=== PATIENT | male | born 1965 | race Caucasian/White ===

== ENCOUNTER 2017-08-17 06:20 | Day surgery (SDC) | payer MEDICAID ==
[~2017-08-17] VITALS: Ht 172.7 cm; Wt 65.2 kg
[~2017-08-17 06:20] MED LIST: SODIUM CHLORIDE 0.9% 1,000 ML IV ONE
[2017-08-17] MEDS ORDERED: SODIUM CHLORIDE 0.9% 1,000 ML IV ONE (07:00)
[2017-08-17] MEDS ORDERED: FOLI1TAB15 PO (07:40)
[2017-08-17] MEDS ORDERED: ENZY1CAP PO (07:40)
[2017-08-17] MEDS ORDERED: METO25XL PO (07:40)
[2017-08-17] MEDS ORDERED: CALC-795 PO (07:40)
[2017-08-17] MEDS ORDERED: MULT-248 PO (07:40)
[2017-08-17] MEDS ORDERED: CA C1TAB98 PO (07:40)
[2017-08-17] MEDS ORDERED: ZINC50TA64 PO (07:40)
[2017-08-17] MEDS ORDERED: NIAC500T7 PO (07:40)
[2017-08-17] MEDS ORDERED: CHOL500062 PO (07:40)
[2017-08-17 07:58] LABS: BASOPHILS % (AUTO) 0.6 % (0.0-2.0); EOSINOPHILS % (AUTO) 3.9 % (1.0-6.0); HEMOGLOBIN 15.7 g/dL (13.5-17.5); MEAN CORPUSCULAR HEMOGLOBIN 32.9 pg (26.0-34.0); MEAN CORPUSCULAR HGB CONC 34.8 G/dL (31.0-37.0); MEAN CORPUSCULAR VOLUME 94 fL (80-100); MONOCYTES # (AUTO) 0.5 K/uL (0.1-1.0); MONOCYTES % (AUTO) 6.8 % (2.0-9.0); NEUTROPHILS % (AUTO) 58.7 % (40.0-70.0); PLATELET COUNT (AUTO) 260 K/uL (150-450); RED BLOOD CELL COUNT(AUTO) 4.77 MIL/uL (4.50-5.90); RED CELL DISTRIBUTION WIDTH 13.5 % (11.5-14.5); WHITE BLOOD COUNT (AUTO) 6.8 K/uL (4.5-11.0)
[2017-08-17] MEDS ORDERED: 0.9% SODIUM CHLORIDE 10 ML SYRINGE IVP ONE (08:02)
[2017-08-17] MEDS ORDERED: MIDAZOLAM HCL 2 MG/2 ML VIAL ONE (08:03)
[2017-08-17] MEDS ORDERED: FentaNYL CITRATE-PF 100 MCG/2 ML VIAL ONE (08:03)
[2017-08-17 08:06] LABS: INR 1.1 (0.9-1.1); PROTHROMBIN TIME 11.4 SEC (9.4-11.6)
[2017-08-17] MEDS ORDERED: BENZOCAINE 20% 50 MCG/SPRAY 57 GM ONE (08:06)
[2017-08-17 08:11] VITALS: BP_SYST 110; BP_SYST 97; BP_DIAS 62; BP_DIAS 76
[2017-08-17 08:12] LABS: ANION GAP 9 mmol/L (8-16); CALCIUM, TOTAL 8.8 mg/dL (8.8-10.5); CARBON DIOXIDE 25 mmol/L (22-29); CHLORIDE 104 mmol/L (98-107); CREATININE 1.01 mg/dL (0.60-1.30); GLOMERULAR FILTR. RATE CALC > 60 mL/min (>60); SODIUM SERUM 138 mmol/L (136-145); UREA NITROGEN, BLOOD 20 mg/dL (7-18)
[2017-08-17] MEDS ORDERED: FentaNYL CITRATE-PF 100 MCG/2 ML VIAL IVP ONE ×2 (08:15→08:17)
[2017-08-17] MEDS ORDERED: MIDAZOLAM HCL 2 MG/2 ML VIAL IVP ONE ×2 (08:15→08:17)
[2017-08-17] MEDS ORDERED: BENZOCAINE 20% 11.9 GM GEL TP ONE (08:16)
[2017-08-17] MEDS ORDERED: BENZOCAINE 20% 50 MCG/SPRAY 57 GM TP ONE (08:16)
== END 2017-08-17 10:50 | disposition home or self-care (01) ==
LOC: CATHLAB 06:20
PROVIDERS: ATTEND Internal Medicine Cardiovascular Disease
DX: Q21.1 Atrial septal defect (principal); I34.1 Nonrheumatic mitral (valve) prolapse; E78.00 Pure hypercholesterolemia, unspecified; F12.90 Cannabis use, unspecified, uncomplicated; Z72.89 Other problems related to lifestyle; Z79.01 Long term (current) use of anticoagulants; Z79.899 Other long term (current) drug therapy; Z98.890 Other specified postprocedural states; Z98.41 Cataract extraction status, right eye
CPT/HCPCS: 36415; 80048; 85025; 85610; 85730; 93312; 99152; J2250; J3010; J7030

== ENCOUNTER 2018-05-13 09:02 | Emergency (ER) | payer MEDICAID ==
[~2018-05-13] VITALS: Ht 170.2 cm; Wt 62.7 kg
[~2018-05-13 09:02] MED LIST changes: +CA C1TAB98 PO; +CALC-795 PO; +CHOL500062 PO; +ENZY1CAP PO; +FOLI1TAB15 PO; +METO25XL PO; +MULT-248 PO; +NIAC500T7 PO; -SODIUM CHLORIDE 0.9% 1,000 ML IV ONE; +ZINC50TA64 PO
[2018-05-13 09:13] LABS: GLUCOSE,POINT OF CARE 91 MG/DL (70-110)
[2018-05-13] MEDS ORDERED: ASPIRIN 81 MG CHEWABLE TABLET PO ONE (09:45)
[2018-05-13] MEDS ORDERED: SODIUM CHLORIDE 0.9% 1,000 ML IV ONE (09:45)
[2018-05-13 09:54] LABS: BASOPHILS % (AUTO) 0.8 % (0.0-2.0); EOSINOPHILS % (AUTO) 3.1 % (1.0-6.0); HEMOGLOBIN 16.7 g/dL (13.5-17.5); LYMPHOCYTES # (AUTO) 2.6 K/uL (1.0-4.8); LYMPHOCYTES % (AUTO) 39.5 % (22.0-44.0); MEAN CORPUSCULAR HEMOGLOBIN 32.5 pg (26.0-34.0); MEAN CORPUSCULAR VOLUME 96 fL (80-100); MONOCYTES # (AUTO) 0.5 K/uL (0.1-1.0); MONOCYTES % (AUTO) 7.5 % (2.0-9.0); NEUTROPHILS # (AUTO) 3.2 K/uL (1.8-7.7); NEUTROPHILS % (AUTO) 49.1 % (40.0-70.0); PLATELET COUNT (AUTO) 262 K/uL (150-450); RED BLOOD CELL COUNT(AUTO) 5.13 MIL/uL (4.50-5.90); RED CELL DISTRIBUTION WIDTH 13.6 % (11.5-14.5)
[2018-05-13 10:04] LABS: ANION GAP 8 mmol/L (8-16); CALCIUM, TOTAL 9.6 mg/dL (8.8-10.5); CARBON DIOXIDE 28 mmol/L (22-29); CHLORIDE 103 mmol/L (98-107); GLOMERULAR FILTR. RATE CALC > 60 mL/min (>60); GLUCOSE,RANDOM 94 mg/dL (70-110); POTASSIUM 4.1 mmol/L (3.5-5.1); SODIUM SERUM 139 mmol/L (136-145); UREA NITROGEN, BLOOD 18 mg/dL (7-18)
[2018-05-13 10:21] LABS: B-TYPE NATRIURETIC PEPTIDE 21 pg/mL (0-100)
[2018-05-13 10:29] LABS: ALANINE AMINOTRANSFERASE 32 U/L (12-78); ALBUMIN 4.3 g/dL (3.4-5.0); ALKALINE PHOSPHATASE 69 U/L (46-116); ASPARTATE AMINOTRANSFERASE 23 U/L (15-37); BILIRUBIN,TOTAL 0.7 mg/dL (0.1-1.0); CREATINE KINASE MB 2.6 ng/mL (0-5); CREATINE KINASE, TOTAL 191 U/L (39-308); TOTAL PROTEIN, SERUM 7.6 g/dL (6.4-8.2)
[2018-05-13 10:29] LABS: APPEARANCE,URINE CLEAR (CLEAR); BILIRUBIN,URINE NEGATIVE (NEGATIVE); GLUCOSE, URINE (UA) NEGATIVE (NEGATIVE); KETONES,URINE 15 mg/dL (NEGATIVE); LEUKOCYTE ESTERASE ,URINE NEGATIVE (NEGATIVE); NITRATE,URINE NEGATIVE (NEGATIVE); OCCULT BLOOD,URINE NEGATIVE (NEGATIVE); PROTEIN,URINE NEGATIVE (NEGATIVE); UROBILINOGEN,URINE 0.2 mg/dL (<=1.0)
[2018-05-13 12:40] VITALS: BP 132/68
== END 2018-05-13 12:44 | disposition left against medical advice (07) ==
LOC: EMS 09:04
DX: R07.9 Chest pain, unspecified (principal); R53.1 Weakness; R42 Dizziness and giddiness; R61 Generalized hyperhidrosis; F10.20 Alcohol dependence, uncomplicated; F41.9 Anxiety disorder, unspecified; E78.00 Pure hypercholesterolemia, unspecified; Z79.899 Other long term (current) drug therapy; Y90.9 Presence of alcohol in blood, level not specified
CPT/HCPCS: 36415; 71045; 80053; 81003; 82550; 82553; 82962; 83880; 84484; 85025; 93005; 96360; 99285; J7030